=== PATIENT | male | born 1985 | race Caucasian/White ===

== ENCOUNTER 2020-09-15 14:55 | Emergency (ER) | payer OTHER ==
[2020-09-15 15:07] VITALS: BP 128/77; PULSE 80; TEMP 98.3; BMI 33.7
[2020-09-15] MEDS ORDERED: DEXAMETHASONE SOD PHOSPHATE 10 MG/1 ML VIAL IM ONE (15:48)
[2020-09-15] MEDS ORDERED: diphenhydrAMINE HCL 25 MG CAPSULE (FP) PO ONE ×2 (15:48→16:29)
[2020-09-15] MEDS ORDERED: DEXAMETHASONE SOD PHOSPHATE 10 MG/1 ML VIAL ONE (16:28)
== END 2020-09-15 16:58 | disposition home or self-care (01) ==
LOC: JERFT 14:55
PROC: 3E023NZ Introduction of Analgesics, Hypnotics, Sedatives into Muscle, Percutaneous Approach (ICD-10-PCS; principal; 2020-09-15)
DX: L24.7 Irritant contact dermatitis due to plants, except food (principal)
CPT/HCPCS: 99283-25; J1100